=== PATIENT | female | born 1965 | race Caucasian/White ===

== ENCOUNTER 2022-08-15 09:57 | Outpatient (CLI) | payer BC, SELFPAY ==
[2022-08-15 11:36] LABS: Chloride* 101 mmol/L (96-114); Potassium* 4.6 mmol/L (3.6-5.1); Sodium* 141 mmol/L (135-149)
[2022-08-15 11:38] LABS: Cholesterol* 186 mg/dL (90-199); Creatinine* 0.8 mg/dL (0.5-1.5); Estimated Glomerular Filt Rate 85 ml/min
[2022-08-15 11:39] LABS: Blood Urea Nitrogen* 22 mg/dL (7-30); Calcium* 9.6 mg/dL (8.4-10.6); Carbon Dioxide* 33 mmol/L (20-32); Glucose* 97 mg/dL (60-115); Triglycerides* 131 mg/dL (40-149)
[2022-08-15 11:40] LABS: HDL Cholesterol* 62 mg/dL (>=50); LDL Cholesterol Calculated 98 mg/dL (<100)
== END 2022-08-15 09:58 | disposition home or self-care (01) ==
PROVIDERS: PCP Internal Medicine; Visit Provider Internal Medicine
DX: E03.9 Hypothyroidism, unspecified (principal); I10 Essential (primary) hypertension; E78.5 Hyperlipidemia, unspecified
CPT/HCPCS: 80048; 80061; 84443

== ENCOUNTER 2022-11-03 09:05 | Outpatient (CLI) | payer BC, SELFPAY ==
--- NOTE | 2022-11-03 09:15 | CRLHL7_ITS ---
For Patients: As a result of the Century Cures Act, medical imaging exams and procedure reports are released immediately into your electronic medical record. You may view this report before your referring provider. If you have questions, please contact your health care provider. BILATERAL SCREENING MAMMOGRAM WITH COMPUTER-AIDED DETECTION AND TOMOSYNTHESIS TECHNIQUE: CC and MLO views were obtained. These mammographic images have been obtained using full-field digital technique. These mammographic images were interpreted with the benefit of computer-aided detection. Breast Tomosynthesis was used in this interpretation. COMPARISON FILM: 07/18/21, 10/26/19, 09/24/18. FINDINGS: There are scattered areas of fibroglandular density IMPRESSION: There is no radiographic evidence for malignancy. ASSESSMENT: BI-RADS Category 1: Negative RECOMMENDATION: Routine screening mammogram in 1 year. A lay language report of this examination will be provided to the patient. Juan Taylor M.D. Diagnostic Radiologist [email or web address] BRENT/Dictated by: Juan Taylor MD @ 11/03/2022 12:28:00 PM (Electronically Signed)
== END 2022-11-03 09:06 | disposition home or self-care (01) ==
LOC: MAMMO 09:07
PROVIDERS: PCP Internal Medicine; Visit Provider Internal Medicine
DX: Z12.31 Encounter for screening mammogram for malignant neoplasm of breast (principal)
CPT/HCPCS: 77063; 77067

== ENCOUNTER 2023-08-18 07:25 | Outpatient (CLI) | payer BC, SELFPAY | END 2023-08-18 07:26 | disposition home or self-care (01) | LOC: NFLDREF 08-19 12:51 | PROVIDERS: PCP Internal Medicine; Referring Provider Internal Medicine; Visit Provider Internal Medicine | DX: E78.5 Hyperlipidemia, unspecified (principal); I10 Essential (primary) hypertension; R73.03 Prediabetes; E03.9 Hypothyroidism, unspecified | CPT/HCPCS: 80048; 80061; 84439; 84443 ==

== ENCOUNTER 2023-11-19 08:38 | Outpatient (CLI) | payer BC, SELFPAY ==
--- NOTE | 2023-11-19 09:15 | MM_ITS ---
Patient: SAFIA VALLECILLO Facility:?[facility] Patient ID:?[id number] Site Patient ID:?[id number]. Site :?[id number] Study:?XRay-Breast Bilateral 3D W/CAD-11/19/2023 11:35:38 AM Ordering Physician:Andree Ortiz Final Report: BILATERAL SCREENING MAMMOGRAM WITH COMPUTER-AIDED DETECTION AND TOMOSYNTHESIS TECHNIQUE: CC and MLO views were obtained. These mammographic images have been obtained using full-field digital technique. These mammographic images were interpreted with the benefit of computer-aided detection. Breast Tomosynthesis was used in this interpretation. COMPARISON FILM: 11/03/22, 07/18/21, 10/26/19. FINDINGS: There are scattered areas of fibroglandular density. IMPRESSION: There is no radiographic evidence for malignancy. ASSESSMENT: BI-RADS Category 1: Negative RECOMMENDATION: Routine screening mammogram in 1 year. A lay language report of this examination will be provided to the patient. Juan Taylor M.D. Diagnostic Radiologist [email or web address] DSM/sp R& Transcribed: 7:21 p.m. SP/Dictated by: Juan Taylor MD @ 11/19/2023 12:24:00 PM Signed by:?Juan Taylor MD @11/20/2023 5:39:20 AM (Electronic Signature)
== END 2023-11-19 08:39 | disposition home or self-care (01) ==
LOC: MAMMO 08:38
PROVIDERS: PCP Internal Medicine; Visit Provider Internal Medicine
DX: Z12.31 Encounter for screening mammogram for malignant neoplasm of breast (principal); E03.9 Hypothyroidism, unspecified
CPT/HCPCS: 77063; 77067; 84443

== ENCOUNTER 2024-04-13 13:06 | Outpatient (CLI) | payer BC, SELFPAY ==
--- OUTSIDE RECORDS SUMMARY | 2024-04-14 03:11 | XMS_ITS | Clinical Summary ---
Author Organization [employer] [facility] Address [place], [place] [address] Care Team Providers Care Brake Drum Lathe Operator Name Role Phone [facility] Primary Care Provider Unavail able Allergies Active Allergy Reactions Criticality Noted Date Comments Penicillins 12/12/2006 Sulfa (Sulfonamide Antibiotics) 11/14 Medications Medication Sig Dispensed Refills Start Date End Date Status VITAMIN D-3 2,000 UNIT TAB 0 07/11/2009 Active fluticasone (50 mcg per actuation) nasal solution (FLONASE)Indications:U nspecified asthma(493.90) Inhale 1 [place] in the nostril(s) 2 times daily. Do not fill until patient calls 1 Bottle 12 12/16/2013 Active albuterol HFA (PRO-AIR,VENTOLIN,PROV ENTIL) 90 mcg/actuation inhalerIndications:Uns pecified asthma(493.90) Inhale 2 Puffs by mouth 4 times daily if needed. 1 Inhaler 11 11/14/2015 Active estradiol (ESTRACE) 0.1 mg/g vaginal creamIndications:Vagin al atrophy Insert 2 g into the vagina once weekly. 1 Tube 6 06/04/2016 Active loratadine (CLARITIN) 10 mg tablet Take 1 tablet by mouth once daily. 0 12/24/2016 Active vitamin B complex (B-COMPLEX VITAMIN) tablet Take 1 tablet by mouth once daily. 0 01/05/2017 Active hydroCHLOROthiazide (HCTZ) 25 mg tabletIndications:Esse ntial hypertension Take 1 tablet by mouth once daily. Do not fill until patient calls 90 tablet 3 01/05/2017 Active levothyroxine (SYNTHROID) 112 mcg tabletIndications:Hypo thyroidism, unspecified Take 1 tablet by mouth before breakfast. 90 tablet 3 01/05/2017 Active montelukast (SINGULAIR) 10 mg tabletIndications:Seas onal allergic rhinitis, unspecified allergic rhinitis trigger Take 1 tablet by mouth once daily. Do not fill until patient calls 90 tablet 3 01/05/2017 Active Active Problems Problem Noted Date Diagnosed Date Localized superficial swelling, mass, or lump Overview: Likely foreign body reaction in left 4th finger. Chondromalacia, patella 07/30/2009 Carpal tunnel syndrome 10/17/2008 Unspecified hypothyroidism 12/12/2006 Unspecified essential hypertension 12/12/2006 Other and unspecified hyperlipidemia 12/12/2006 Unspecified asthma(493.90) 12/12/2006 Immunizations Name Administration Dates Next Due AMB Influenza, IIV3 (Age >=3 years)(Flu Clinic Only) 07/31/2008 Influenza, IIV3 (Age >=3 years) 07/15/20 13,07/15/2011,07/15/2010, 7,08/20/2006 Td (Age >=7 Years) 08/26/2005 Tdap 10/25/2010 Family History Medical History Relation Name Comments Other Brother non Hodgkins ly mphoma Diabetes Child son Stroke Father Diabetes Maternal Grandmother Stroke Mother Other cancer Paternal Grandfather lip can cer Diabetes Paternal Grandmother Cancer-breast No Family History Cancer-colon No Family History Relation Name Status Comments Brother (Age 57) non hodgki ns lymphoma Child Father Maternal Grandmother Mother (Age 96) Paternal Grandfather Paternal Grandmother Social History Tobacco Use Types Packs/Day Years Used Date Smoking Tobacco: Former Tobacco Cessation:Counseling Given: Yes Alcohol Use Standard Drinks/Week Comments Yes 0 (1 standard drink = 0.6 oz pur e alcohol) occasional Sex and Gender Information Value Date Recorded Sex Assigned at Not on file Gender Identity Not on file Sexual Orientation Not on file Obstetrics History Para Term AB IAB SAB Ectopic Multiple Livin g Live Births 2 2 2 Date Outcome GA Total Labor Labor/2nd/3rd Weight Sex Type Anes PTL [place] A1 A5 Name Clin Para Para Last Filed Vital Signs Vital Sign Reading Time Taken Comments Blood Pressure 104/71 01/28/2017 7:58 AM CDT Pulse 87 01/28/2017 7:58 AM CDT Temperature 36.9 ??C (98.5 ??F) 01/28/2017 7:58 AM CD T Respiratory Rate - - Oxygen Saturation 99% 01/28/2017 7:58 AM CDT Inhaled Oxygen Concentration - - Weight 105.1 kg (231 lb 9.6 oz) 01/28/2017 7:58 AM CDT Height 179 cm (5' 10.47) 01/28/2017 7:58 AM CDT Body Mass Index 32.79 01/28/2017 7:58 AM CDT Plan of Treatment Health Maintenance Due Date Last Done Comments HIV for age 15-65 1978 Hepatitis C screening for age 18-79 1981 Colonoscopy through age 75 2008 Zoster (shingles) series for age 50+ (1 of 2) 2013 Depression screening for age 12+ 05/21/2017 05/21/2016, 05/21/2016 Mammogram for age 45-75 10/16/2017 10/16/19 17, 12/12/2013, 11/22/2012, Additional history exists BMI (ht and wt on same day) for age 18+ 01/28/2018 01/28/2017, 12/24/2016, 08/20/2016, Additional history exists Tetanus booster 10/25/2020 10/25/2010, 08/26/2005 Lipids for age 45-75 05/14/2021 05/14/2016, 12/14/2014, 12/09/2013, Additional history exists Pap test for age 21-65 05/21/2021 6, 05/21/2016, 11/23/2012, Additional history exists COVID-19 vaccine series (2022-24 season) 2023 Influenza for age 50-64 05/15/2024 06/22/20 15 ([facility]), 07/15/2013, 07/15/2011, Additional history exists Tdap Completed 10/25/2010 Pneumococcal series for age 6-64 Aged Out No longer eligible based on patient's age to complete this topic Procedures Procedure Name Priority Date/Time Associated Diagnosis Comments XR MAMMO BILAT DIAGNOSTIC Routine 10/16/2016 1:43 PM PRIMARY MONTESSORI TEACHER Breast abscess CHECK CASHIER THIN PREP PAP SCREEN IMAGED Routine 05/21/2016 8:15 AM CDT Healthcare maintenance LIPID PANEL W REFLEX MEASURED LDL Routine 05/14/2016 7:54 AM CDT Health care maintenance from Last 3 Months or Most Recently Relevant to Health Maintenance Results * XR MAMMO BILAT DIAGNOSTIC (10/16/2016 1:43 PM PRIMARY MONTESSORI TEACHER) Anatomical Region Laterality Modality BREASTS, Breast Left, Breast Right Bilateral Mammography Impressions 10/16/2016 3:48 PM PRIMARY MONTESSORI TEACHER ??Benign. ??Any further workup is as clinically indicated, otherwise, I would recommend continued screening in one year. ?? BI-RADS Category 2: Benign Davy Cummings M.D. Diagnostic Radi[facility] [employer] [email or web address] ADELAIDAO/pjtrav / ?? Narrative 10/16/2016 3:48 PM PRIMARY MONTESSORI TEACHER BILATERAL DIGITAL DIAGNOSTIC MAMMOGRAM 10/16/2016 ?? RIGHT BREAST ULTRASOUND 10/16/2016 CLINICAL HISTORY: ??Follow-up abscess. ??The patient had dark bloody discharge from the RIGHT nipple. ??The palpable area at the 6 o'clock position has resolved. TECHNIQUE: ??BILATERAL full-field digital mammograms were performed. ?? FINDINGS: ??A marker was placed at the 6 o'clock position at the site of the prior abscess/infection. ??The breast parenchyma is predominantly fatty. ??No spiculated masses or suspicious clustered pleomorphic microcalcifications are identified but targeted ultrasound will be performed of the retroareolar and 6 o'clock positions of the RIGHT breast. The LEFT breast is unchanged from prior examinations. RIGHT BREAST ULTRASOUND: ??Targeted ultrasound was performed of the retroareolar region and at the 6 o'clock position at the site of the prior infection. ??There are some prominent/mildly dilated ducts in the retroareolar region but no mass is identified. ??At the 6 o'clock position 1 cm from the nipple, there is a vague residual hyperechoic area with a hypoechoic center. ??This is decreased in size and probably is the residua of the prior infection. ??It previously measured 11 x 9 x 9 mm and now measures just 8 x 4 x 3 mm. ?? Ranjeet Jennings MD MAMMO * CHECK CASHIER THIN PREP PAP SCREEN IMAGED (05/21/2016 8:15 AM CDT) CHECK CASHIER CYTOLOGY See Anatomic Pathology case 05/22/2016 9:01 AM CDT [facility] Other (Cervical) Non-Blood / Unknown 05/21/2016 8:15 AM CDT 05/21/2016 8:40 AM CDT Janik Dioxn MD PATHOLOGY/CYTOLOGY [facility] [address] [place] [address], [place] * (ABNORMAL) LIPID PANEL W REFLEX MEASURED LDL (05/14/2016 7:54 AM CDT) CHOLESTEROL,TOTAL 248(H) 100 - 199 mg/dL 05/14/2016 8:26 AM CDT [facility] TRIGLYCERIDES 212(H) <150 mg/dL 05/14/2016 8:26 AM CDT [facility] HDL CHOLESTEROL 53 >40 mg/dL 05/14/2016 8:26 AM CDT [facility] NON-HDL CHOLESTEROL 195(H) <145 mg/dl 05/14/2016 8:26 AM CDT [facility] CHOL/HDL RATIO 4.68(H) <4.50 05/14/2016 8:26 AM CDT [facility] LDL CHOLESTEROL 153(H) <=130 mg/dL 05/14/2016 8:26 AM CDT [facility] PATIENT STATUS FASTING 05/14/2016 8:26 AM CDT [facility] Blood BLOOD SPECIMEN / Unknown Venipuncture / Unknown 05/14/2016 7:54 AM CDT 05/14/2016 7:54 AM CDT Janki Dixon MD CHEMISTRY [facility] [address] [place] [address], from Last 3 Months or Most Recently Relevant to Health Maintenance Care Teams Brake Drum Lathe Operator Relationship Specialty Start Date End Date Boby Ford PCP - General 08/17/17
--- OUTSIDE RECORDS SUMMARY | 2024-04-14 03:11 | XMS_ITS | Clinical Summary ---
Author Organization [facility] Address [address] [place] [address] Care Team Providers Care Insulation Professional Name Role Phone Unavailable Primary Care Provider Unavailabl e Source Comments Patient records contain information from all sites at [facility]. For routine questions regarding patient records, call [phone] during business hours, M-F 8:00 AM - 5:00 PM Central Time. Record requests for emergency care only can be directed to [phone] at any time.[facility] Allergies Active Allergy Reactions Criticality Noted Date Comments Ibuprofen Hives (Reselect Reaction) High 02/15/2020 Penicillins Hives (Reselect Reaction) 0 Sulfa (Sulfonamide Antibiotics) Hives (Reselect Reaction) 12/12/2006 Medications Medication Sig Dispensed Refills Start Date End Date Status albuterol inhaler Inhale 2 puffs as needed (1-2 TIME PER YEAR). 11/14/2015 Active cholecalciferol (VITAMIN D3) 2,000 Unit tablet Take 125 mcg by mouth daily. 5000 IU'S DAILY 07/11/2009 Active simvastatin (ZOCOR) 10 mg tablet Take 10 mg by mouth at bedtime. 01/27/2020 Active hydroCHLOROthiazide (HYDRODIURIL) 25 mg tablet Take 25 mg by mouth daily. 01/27/2020 Active fluticasone propionate (FLONASE) 50 mcg/actuation nasal spray 2 sprays as needed (DURING ALLERGY FLAIRUP'S ONLY). Active levothyroxine (SYNTHROID, LEVOTHROID) 100 mcg tablet Take 100 mcg by mouth every morning before breakfast. 05/29/2021 Active montelukast (SINGULAIR) 10 mg tablet Take 10 mg by mouth at bedtime. Active cyanocobalamin (vitamin B-12) 1,000 mcg tablet Take 1,000 mcg by mouth daily. I per day Active cetirizine 10 mg capsule Take 10 mg by mouth daily. Active clobetasoL (TEMOVATE) 0.05 % gel Oral lichen planus: BID to any symptomatic areas 60 g 3 04/21/2023 Active clobetasoL (TEMOVATE) 0.05 % ointment BID x 2 wks then QHS x 2 wks then Vulva M+W+F nights ongoing prn increase to bid for flares. 60 g 3 04/21/2023 Active estradioL (ESTRACE) 0.1 mg/g (0.01%) vaginal cream Insert 1 g into the vagina 2 (two) times a week. 42.5 g 3 04/23/2023 Active Active Problems No known active problems Social History Tobacco Use Types Packs/Day Years Used Date Smoking Tobacco: Never Smokeless Tobacco: Never Tobacco Cessation:Counseling Given: Not Answered Humiliation, Afraid, Rape, and Kick questionnair e Answer Date Recorded Within the last year, have y ou been afraid of your partner or ex-partner? No 04/14/2023 Within the last year, have y ou been humiliated or emotionally abused in other ways by your partner or ex-partner? No Within the last year, have y ou been kicked, hit, slapped, or otherwise physically hurt by your partner or ex-partner? No 04/14/2023 Within the last year, have y ou been raped or forced to have any kind of sexual activity by your partner or ex-partner? No 04/14/2023 Overall Financial Resource Strain (CARDIA) Answe r Date Recorded How hard is it for you to pa y for the very basics like food, housing, medical care, and heating? Not hard at all 04/14/2023 Exercise Vital Sign Answer Date Recorde d On average, how many days pe r week do you engage in moderate to strenuous exercise (like a brisk walk)? 0 days 04/14/2023 On average, how many minutes do you engage in exercise at this level? 0 min 04/14/2023 Hunger Vital Sign Answer Date Recorded Within the past 12 months, y ou worried that your food would run out before you got the money to buy more. Never true 04/14/20 23 Within the past 12 months, t he food you bought just didn't last and you didn't have money to get more. Never true 04/14/2023 PRAPARE - Transportation Answer Date Re corded In the past 12 months, has l ack of transportation kept you from medical appointments or from getting medications? No 09/2022 In the past 12 months, has l ack of transportation kept you from meetings, work, or from getting things needed for daily living? No 04/14/2023 Nutrition Answer Date Recorded Nutrition: EVOO Fat Source Unknown 04/14 On average, how many serving s of fruits and vegetables do you eat per day (serving size is equal to 1 cup or approximately the size of a tennis ball)? 0-2 04/14/2023 Dental Answer Date Recorded Dental: Regular Dentist Yes 04/14/20 Employment Answer Date Recorded Employment status Retired 04/14/2023 Housing Stability Answer Date Recorded What is your living situation today? I have a [facility] place to live 04/14/2023 Sex and Gender Information Value Date Recorded Sex Assigned at Female 07/22/2023 7:33 PM RN MEDICAL SURGICAL Gender Identity Female 07/22/2023 7:33 PM RN MEDICAL SURGICAL Sexual Orientation Straight 07/22/2023 7: 33 PM RN MEDICAL SURGICAL Last Filed Vital Signs Vital Sign Reading Time Taken Comments Blood Pressure 136/86 02/15/2020 8:30 AM CDT Pulse 84 02/15/2020 8:30 AM CDT Temperature - - Respiratory Rate - - Oxygen Saturation - - Inhaled Oxygen Concentration - - Weight 106 kg (233 lb 4 oz) 02/15/2020 8:30 AM C DT Height 178.4 cm (5' 10.24) 02/15/2020 8:30 AM C DT Body Mass Index 33.24 02/15/2020 8:30 AM CDT Plan of Treatment Health Maintenance Due Date Last Done Comments CT Colonography 1965 Colonoscopy 1965 FIT 1965 Fasting Glucose for Diabetes Screening 1965 HIV Screening 1965 Hepatitis C Screening 1965 Lipid (Cholesterol) Screening 1965 Mammogram 1965 Thyroid Stimulating Hormone (TSH) test for thyroid function 1963 COVID-19 Vaccine ( season) 2023 08/02/2021, 12/18/2020, 11/27/2020 Depression Screening (Annual PHQ-2) 09/14/2023 Influenza Vaccine (#1) 2024 3, 08/18/2022, 06/26/2021, Additional history exists Cologuard 08/16/2024 08/16/2021 Colorectal Cancer Screening 08/16/2024 Cervical Cancer Screening 02/14/2025 02/15/2020, 11/2019 DTaP,Tdap,and Td Vaccines (3 - Td or Tdap) 07/16/2031 07/16/2021, 10/25/2010, 10/25/2010, Additional history exists Zoster Vaccines Completed 09/12/2020, 06/25/2020 Hepatitis B Vaccines Aged Out No long er eligible based on patient's age to complete this topic Pneumococcal vaccine (0-64 years) Aged Out No longer eligible based on patient's age to complete this topic Procedures Procedure Name Priority Date/Time Associated Diagnosis Comments THINPREP W/HPV CO-TEST SCREEN Routine 02/15/2020 9:13 AM CDT Lichen Planus Lichen Sclerosus Vulvar Intraepithelial Neoplasia Grade I from Last 3 Months or Most Recently Relevant to Health Maintenance Results * ThinPrep w/HPV Co-Test Screen (02/15/2020 9:13 AM CDT) 02/29/2020 2:25 PM CDT DTL Report electronically signed by KAT Reddy (ASCP) I verify that I have examined all relevant slides/materials for the specimen(s) and rendered or confirmed the diagnosis. 02/29/2020 2:25 PM CDT DTL Gross Description Received specimen in a ThinPrep vial. 02/29/2020 2:25 PM CDT DTL Pap Test Source Cervical/Endocervi rosanne 02/29/2020 2:25 PM CDT DTL Clinical History \[id number]\ 02/29/20 20 2:25 PM CDT DTL Menstrual Status(LMP, PM, ) PM 02/29/2020 2:25 PM CDT DTL Hormone Therapy/Contracep tives None/Not known 02/29/2020 2:25 PM CDT DTL Interpretation Cervical/Endocervi rosanne ??(ThinPrep): Satisfactory for Evaluation Negative for Intraepithelial Lesion or Malignancy ??High Risk HPV testing results are NEGATIVE. See specific genotype results below. HPV with Genotyping, PCR, ThinPrep: ??HPV High Risk Type 16, PCR: ??NEGATIVE ??HPV High Risk Type 18, PCR: ??NEGATIVE ??HPV other High Risk types, PCR: ??NEGATIVE Other High Risk HPV types include: 31, 33, 35, 39, 45, 51, 52, 56, 58, 59, 66, and 68. 02/29/2020 2:25 PM CDT DTL Varies (Cervix/Endocerv ix) 02/15/2020 9:13 AM CDT 02/15/2020 5:13 PM CDT Radha Geller M.D. LAB PAP PATHDX ORDER [facility]IA DEL [facility] [address] [place] [address], [facility] [address] [place] [address] from Last 3 Months or Most Recently Relevant to Health Maintenance
--- OUTSIDE RECORDS SUMMARY | 2024-04-14 03:11 | XMS_ITS ---
Author Organization [facility] Address [address] [place] [address] Care Team Providers Care Baby Stroller Rental Clerk Name Role Phone Unavailable Unavailable Unavailable Surgery Details Not on file Complications Check Surgery Details section. Procedure Estimated Blood Loss Check Surgery Details section. Procedure Findings Check Surgery Details section. Procedure Specimens Taken Check Surgery Details section.
--- OUTSIDE RECORDS SUMMARY | 2024-04-14 03:11 | XMS_ITS | Referral Summary ---
Author Organization [facility] Address [address] [place] [address] Care Team Providers Care Pastry Cook Name Role Phone Unavailable Primary Care Provider Unavailabl e Source Comments Patient records contain information from all sites at [facility]. For routine questions regarding patient records, call [phone] during business hours, M-F 8:00 AM - 5:00 PM Central Time. Record requests for emergency care only can be directed to [phone] at any time.[facility] Allergies Active Allergy Reactions Criticality [...] your living situation today? I have a [facility] place to live 04/14/2023 Sex and Gender Information Value Date Recorded Sex Assigned at Female 07/22/2023 7:33 PM MOLDED GOODS SPOT PICKER Gender Identity Female 07/22/2023 7:33 PM MOLDED GOODS SP[employer] PICKER Sexual Orientation Straight 07/22/2023 7: 33 PM MOLDED GOODS SPOT PICKER Last Filed Vital Signs Vital Sign Reading [...] 02/15/2020 8:30 AM CDT Plan of Treatment Not on file Procedures Procedure Name Priority Date/Time Associated Diagnosis [...] 02/29/2020 2:25 PM CDT DTL Clinical History \[id number]\ 02/29/20 2:25 PM CDT DTL Menstrual Status(LMP, PM, [...] LAB PAP PATHDX ORDER [facility] [address] [place] [address], [place] DTL [facility] [address] [place] [address] from Last 3 Months or Most Recently Relevant to Health Maintenance
== END 2024-04-13 13:07 | disposition home or self-care (01) ==
LOC: NFLDREF 04-14 03:10
PROVIDERS: PCP Internal Medicine; Referring Provider Internal Medicine; Visit Provider Nurse Practitioner Family
DX: R39.9 Unspecified symptoms and signs involving the genitourinary system (principal); N39.0 Urinary tract infection, site not specified; A49.9 Bacterial infection, unspecified
CPT/HCPCS: 87086; 87186

== ENCOUNTER 2024-08-19 07:45 | Outpatient (CLI) | payer BC, SELFPAY ==
--- OUTSIDE RECORDS SUMMARY | 2024-08-23 17:55 | XMS_ITS | Referral Summary ---
Author Organization [facility] Address [address] [place] [address] Care Team Providers Care Credit Administrator Name Role Phone Unavailable Primary Care Provider Unavailabl e Source Comments Patient records contain information from all sites at [facility]. For routine questions regarding patient records, call [phone] during business hours, M-F 8:00 AM - 5:00 PM Central Time. Record requests for emergency care only can be directed to [phone] at any time.[facility] Encounters Date Type Department Care Team Description 07/21/2024 Refill Department of Obstetrics and Gynecology in [place], [place] [address] [place] [address] Pamela Warren M.D., Ph.D. Med Refill from Last 3 Months Allergies Active Allergy Reactions Criticality Noted Date Comments Ibuprofen Hives (Reselect Reaction) High 02/15/2020 Penicillins Hives (Reselect Reaction) 0 Sulfa (Sulfonamide Antibiotics) Hives (Reselect Reaction) 12/12/2006 Medications albuterol inhaler Inhale 2 puffs as needed (1-2 TIME PER YEAR). 6 Active cholecalciferol (VITAMIN D3) 2,000 Unit tablet Take 125 mcg by mouth daily. 5000 IU'S DAILY 9 Active simvastatin (ZOCOR) 10 mg tablet Take 10 mg by mouth at bedtime. 0 Active hydroCHLOROthia zide (HYDRODIURIL) 25 mg tablet Take 25 mg by mouth daily. 0 Active fluticasone propionate (FLONASE) 50 mcg/actuation nasal spray 2 sprays as needed (DURING ALLERGY FLAIRUP'S ONLY). Active levothyroxine (SYNTHROID, LEVOTHROID) 100 mcg tablet Take 100 mcg by mouth every morning before breakfast. 1 Active montelukast (SINGULAIR) 10 mg tablet Take 10 mg by mouth at bedtime. Active cyanocobalamin (vitamin B-12) 1,000 mcg tablet Take 1,000 mcg by mouth daily. I per day Active cetirizine 10 mg capsule Take 10 mg by mouth daily. Active clobetasoL (Temovate) 0.05 % gel Oral lichen planus: BID to any symptomatic areas 60 g 3 4 Active clobetasoL (Temovate) 0.05 % ointment BID x 2 wks then QHS x 2 wks then Vulva M+W+F nights ongoing prn increase to bid for flares. 60 g 3 4 Active estradioL (Estrace) 0.1 mg/g (0.01%) vaginal cream Insert 1 g into the vagina 2 (two) times a week. 42.5 g 3 4 Active Active Problems No known active problems [...] money to buy more. Never true 04/14/20 Within the past 12 months, t he [...] living? No 04/14/2023 Nutrition Answer Date Recorded On average, how many serving s of fruits and vegetables do you eat per day (serving size is equal to 1 cup or approximately the size of a tennis ball)? 0-2 04/14/2023 Dental Answer Date Recorded Dental: Regular Dentist Yes 04/14/20 Employment Answer Date Recorded Employment status Retired 04/14/2023 Housing Stability Answer Date Recorded What is your living situation today? 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 Legal Sex Female 3:35 PM AIRCRAFT MAINTENANCE ENGINEER Gender Identity Female 07/22/2023 7:33 PM AIRCRAFT MAINTENANCE ENGINEER Sexual Orientation Straight 07/22/2023 7: 33 PM AIRCRAFT MAINTENANCE ENGINEER Last Filed Vital Signs Vital Sign Reading [...] 02/29/2020 2:25 PM CDT DTL Clinical History \[id number]\ 02/29/20 20 2:25 PM CDT DTL Menstrual Status(LMP, PM, ) PM 02/29/2020 2:25 PM CDT DTL Hormone Therapy/Contracep tives None/Not known 02/29/2020 2:25 PM CDT DTL Interpretation Cervical/Endocervi rosanne (ThinPrep): Satisfactory for Evaluation Negative for Intraepithelial Lesion or Malignancy High Risk HPV testing results are NEGATIVE. See specific genotype results below. HPV with Genotyping, PCR, ThinPrep: HPV High Risk Type 16, PCR: NEGATIVE HPV High Risk Type 18, PCR: NEGATIVE HPV other High Risk types, PCR: NEGATIVE Other High Risk HPV types include: 31, 33, 35, 39, 45, 51, 52, 56, 58, 59, 66, and 68. 02/29/2020 2:25 PM CDT DTL Varies (Cervix/Endocerv ix) 02/15/2020 9:13 AM CDT 02/15/2020 5:13 PM CDT Radha L Marnach M.D. LAB PAP PATHDX ORDERABLES Fi nal Result [facility] [address] [place] [address], [place] DTL [facility] [address] [place] [address] from Last 3 Months or Most Recently Relevant to Health Maintenance Insurance [facility]
--- OUTSIDE RECORDS SUMMARY | 2024-08-23 17:55 | XMS_ITS | Clinical Summary ---
Author Organization [facility] Address [address] [place] [address] Care Team Providers Care Brick Molder Hand Name Role Phone Unavailable Primary Care Provider Unavailabl e Source Comments Patient records contain information from all sites at [facility]. For routine questions regarding patient records, call [phone] during business hours, M-F 8:00 AM - 5:00 PM Central Time. Record requests for emergency care only can be directed to [phone] at any time.[facility] Allergies Active Allergy Reactions Criticality Noted [...] Active Active Problems No known active problems Encounters Date Type Department Care Team Description 07/21/2024 Refill Department of Obstetrics and Gynecology in [place], [place] [address] [place] [address] Pamela Warren M.D., Ph.D. Med Refill from Last 3 Months Social History Tobacco Use Types Packs/Day Years [...] your living situation today? I have a [facility] place to live 04/14/2023 Comments Unknown Sex and Gender Information Value Date Recorded Sex Assigned at Female 07/22/2023 7:33 PM TOOL/DIE MAKER Legal Sex Female 3:35 PM TOOL/DIE MAKER Gender Identity Female 07/22/2023 7:33 PM TOOL/DIE MAKER Sexual Orientation Straight 07/22/2023 7: 33 PM TOOL/DIE MAKER Last Filed Vital Signs Vital Sign Reading [...] Hormone (TSH) test for thyroid function 1963 Depression Screening (Annual PHQ-2) 09/14/2023 COVID-19 Vaccine ( season) 2024 08/02/2021, 12/18/2020, 11/27/2020 Influenza Vaccine (#1) 2024 , 08/18/2022, 06/26/2021, Additional history exists Cologuard 08/16/2024 08/16/2021 Colorectal Cancer Screening 08/16/2024 Cervical/Vaginal Cancer Screening 02/14/2025 02/15/2020, 02/15/2020 DTaP,Tdap,and Td Vaccines (3 - Td or Tdap) 07/16/2031 07/16/2021, 10/25/2010, 10/25/2010, Additional history exists Zoster Vaccines Completed 09/12/2020, 06/25/2020 IPV Vaccines Aged Out No longer eligi ble based on patient's age to complete this [...] 02/29/2020 2:25 PM CDT DTL Clinical History \[id number]\ 02/29/20 20 2:25 PM CDT DTL Menstrual [...] CDT Radha Geller M.D. LAB PAP PATHDX ORDERABLES Fi nal Result [facility] [address] [place] [address], [facility] [address] [place] [address] from Last 3 Months or Most Recently Relevant to Health Maintenance Insurance [facility]
--- OUTSIDE RECORDS SUMMARY | 2024-08-23 17:55 | XMS_ITS | Clinical Summary ---
Author Organization [facility] Address [place], [place] [address] Care Team Providers Care Lacer And Tier Name Role Phone Clinic, [facility] Primary Care Pr ovider Allergies Active Allergy Reactions Criticality Noted Date Comments Penicillins 12/12/2006 Sulfa (Sulfonamide Antibiotics) 11/14 Medications VITAMIN D-3 2,000 UNIT TAB 0 9 Active fluticasone (50 mcg per actuation) nasal solution (FLONASE)Indicati ons:Unspecified asthma(493.90) Inhale 1 [place] in the nostril(s) 2 times daily. Do not fill until patient calls 1 Bottle 12 4 Active albuterol HFA (PRO-AIR,VENTOLIN ,PROVENTIL) 90 mcg/actuation inhalerIndication s:Unspecified asthma(493.90) Inhale 2 Puffs by mouth 4 times daily if needed. 1 Inhaler 11 6 Active estradiol (ESTRACE) 0.1 mg/g vaginal creamIndications: Vaginal atrophy Insert 2 g into the vagina once weekly. 1 Tube 6 6 Active loratadine (CLARITIN) 10 mg tablet Take 1 tablet by mouth once daily. 0 7 Active vitamin B complex (B-COMPLEX VITAMIN) tablet Take 1 tablet by mouth once daily. 0 7 Active hydroCHLOROthiazi de (HCTZ) 25 mg tabletIndications :Essential hypertension Take 1 tablet by mouth once daily. Do not fill until patient calls 90 tablet 3 7 Active levothyroxine (SYNTHROID) 112 mcg tabletIndications :Hypothyroidism, unspecified Take 1 tablet by mouth before breakfast. 90 tablet 3 7 Active montelukast (SINGULAIR) 10 mg tabletIndications :Seasonal allergic rhinitis, unspecified allergic rhinitis trigger Take 1 tablet by mouth once daily. 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 Not on file Not on file Not on file Obstetrics History Para Term AB IAB SAB Ectopic Multiple Livin g Live Births 2 2 2 Date Outcome GA Total Labor Labor/2nd/3rd Weight Sex Type Anes PTL Lakeshia A1 A5 Name Clin Para Para Last Filed Vital Signs Vital Sign Reading Time Taken Comments Blood Pressure 104/71 01/28/2017 7:58 AM CDT Pulse 87 01/28/2017 7:58 AM CDT Temperature 36.9 C (98.5 F) 01/28/2017 7:58 AM CDT Respiratory Rate - - Oxygen Saturation 99% [...] 11/23/2012, Additional history exists COVID-19 vaccine series (2023- season) 2024 Influenza for age 50-64 05/15/2024 06/22/20 15 (Completed outside of [facility]), 07/15/2013, 07/15/2011, Additional history exists RSV vaccine for adults or (1 - 1-dose 75+ series) 2038 Tdap Completed 10/25/2010 Pneumococcal series for age 6-64 Aged Out No longer eligible based on patient's age to complete this topic Procedures Procedure Name Priority Date/Time Associated Diagnosis Comments XR MAMMO BILAT DIAGNOSTIC Routine 10/16/2016 1:43 PM STABLE MANAGER Breast abscess DISTRICT HOME ECONOMICS AGENT THIN PREP PAP SCREEN IMAGED Routine 05/21/2016 8:15 AM CDT Healthcare maintenance LIPID PANEL W REFLEX MEASURED LDL Routine 05/14/2016 7:54 AM CDT Health care maintenance from Last 3 Months or Most Recently Relevant to Health Maintenance Results * XR MAMMO BILAT DIAGNOSTIC (10/16/2016 1:43 PM STABLE MANAGER) Anatomical Region Laterality Modality BREASTS, Breast Left, Breast Right Bilateral Mammography Impressions 10/16/2016 3:48 PM STABLE MANAGER Benign. Any further workup is as clinically indicated, otherwise, I would recommend continued screening in one year. BI-RADS Category 2: Benign Davy Cummings M.D. Diagnostic Radiologist [email or web address] ADELAIDAO/pjt / Narrative 10/16/2016 3:48 PM STABLE MANAGER BILATERAL DIGITAL DIAGNOSTIC MAMMOGRAM 10/16/2016 RIGHT BREAST ULTRASOUND 10/16/2016 CLINICAL HISTORY: Follow-up abscess. The patient had dark bloody discharge from the RIGHT nipple. The palpable area at the 6 o'clock position has resolved. TECHNIQUE: BILATERAL full-field digital mammograms were performed. FINDINGS: A marker was placed at the 6 o'clock position at the site of the prior abscess/infection. The breast parenchyma is predominantly fatty. No spiculated masses or suspicious clustered pleomorphic microcalcifications are identified but targeted ultrasound will be performed of the retroareolar and 6 o'clock positions of the RIGHT breast. The LEFT breast is unchanged from prior examinations. RIGHT BREAST ULTRASOUND: Targeted ultrasound was performed of the retroareolar region and at the 6 o'clock position at the site of the prior infection. There are some prominent/mildly dilated ducts in the retroareolar region but no mass is identified. At the 6 o'clock position 1 cm from the nipple, there is a vague residual hyperechoic area with a hypoechoic center. This is decreased in size and probably is the residua of the prior infection. It previously measured 11 x 9 x 9 mm and now measures just 8 x 4 x 3 mm. us Ranjeet Jennings MD MAMMO Final Resu lt * DISTRICT HOME ECONOMICS AGENT THIN PREP PAP SCREEN IMAGED (05/21/2016 8:15 AM CDT) DISTRICT HOME ECONOMICS AGENT CYTOLOGY See Anatomic Pathology case 05/22/2016 9:01 AM CDT [facility] Other (Cervical) Non-Blood / Unknown 05/21/2016 8:15 AM CDT 05/21/2016 8:40 AM CDT us Janki Dixon MD PATHOLOGY/CYTOLOGY Final R esult [facility] [address] [place] [address], [place] * (ABNORMAL) LIPID PANEL W REFLEX MEASURED LDL (05/14/2016 7:54 AM CDT) CHOLESTEROL,TOTAL 248(H) 100 - 199 mg/dL 05/14/2016 8:26 AM CDT [facility] TRIGLYCERIDES 212(H) <150 mg/dL 05/14/2016 8:26 AM CDT [facility] HDL CHOLESTEROL 53 >40 mg/dL 05/14/2016 8:26 AM CDT [facility] NON-HDL CHOLESTEROL 195(H) <145 mg/dl 05/14/2016 8:26 AM CDT [facility] CHOL/HDL RATIO 4.68(H) <4.50 05/14/2016 8:26 AM CDT [facility] LDL CHOLESTEROL 153(H) <=130 mg/dL 05/14/2016 8:26 AM CDT [facility] PATIENT STATUS FASTING 05/14/2016 8:26 AM CDT [facility] Blood BLOOD SPECIMEN / Unknown Venipuncture / Unknown 05/14/2016 7:54 AM CDT 05/14/2016 7:54 AM CDT Janki Dixon MD CHEMISTRY Final Resu lt [facility] [address] [place] [address], from Last 3 Months or Most Recently Relevant to Health Maintenance Insurance [facility] Care Teams Lacer And Tier Relationship Specialty Start Date End Date [facility] [address] [place] [address] PCP - General 04/25/24
--- OUTSIDE RECORDS SUMMARY | 2024-08-23 17:55 | XMS_ITS | Encounter Summary ---
Author Organization [facility] Address [address] [place] [address] Care Team Providers Care Pack Changer Name Role Phone Unavailable Primary Care Provider Unavailabl e Reason for Visit * Reason Onset Date Comments Med Refill 07/21/2024 Encounter Details Date Type Department Care Team (Late st Contact Info) Description 07/21/2024 Refill Department of Obstetrics and Gynecology in [place], [place] [address] [place] [phone] Pamela Warren M.D., Ph.D. [address] [place] [phone] Med Refill Social History Tobacco Use Types Packs/Day Years Used Date Smoking Tobacco: Never Smokeless Tobacco: Never Humiliation, Afraid, Rape, and Kick questionnair e [...] No 04/14/2023 Overall Financial Resource Strain (CARDIA) Elizabeth r Date Recorded How hard is it [...] living situation today? I have a [facility] place to live 04/14/2023 Comments Unknown Sex and Gender Information Value Date Recorded Sex Assigned at Female 07/22/2023 7:33 PM LASER PRINT OPERATOR Legal Sex Female 3:35 PM LASER PRINT OPERATOR Gender Identity Female 07/22/2023 7:33 PM LASER PRINT OPERATOR Sexual Orientation Straight 07/22/2023 7: 33 PM LASER PRINT OPERATOR documented as of this encounter Plan of Treatment Not on file documented as of this encounter Visit Diagnoses Not on filedocumented in this encounter
--- OUTSIDE RECORDS SUMMARY | 2024-08-23 17:55 | XMS_ITS ---
Author Organization [facility] Address [address] [place] [address] Care Team Providers Care Employee Relations Director Name Role Phone Unavailable Unavailable Unavailable Surgery Details Not on file Complications Check Surgery Details section. Procedure Estimated Blood Loss Check Surgery Details section. Procedure Findings Check Surgery Details section. Procedure Specimens Taken Check Surgery Details section.
== END 2024-08-19 07:46 | disposition home or self-care (01) ==
LOC: NFLDREF 08-23 17:53
PROVIDERS: PCP Internal Medicine; Referring Provider Internal Medicine; Visit Provider Internal Medicine
DX: I10 Essential (primary) hypertension (principal); E03.9 Hypothyroidism, unspecified; R73.03 Prediabetes; E78.5 Hyperlipidemia, unspecified
CPT/HCPCS: 80048; 80061; 84443

== ENCOUNTER 2024-11-24 09:01 | Outpatient (CLI) | payer BC, SELFPAY ==
--- NOTE | 2024-11-24 09:15 | CRLHL7_ITS ---
For Patients: As a result of the Century Cures Act, medical imaging exams and procedure reports are released immediately into your electronic medical record. You may view this report before your referring provider. If you have questions, please contact your health care provider. BILATERAL SCREENING MAMMOGRAM WITH COMPUTER-AIDED DETECTION AND TOMOSYNTHESIS TECHNIQUE: CC and MLO views were obtained. These mammographic images have been obtained using full-field digital technique. These mammographic images were interpreted with the benefit of computer-aided detection. Breast Tomosynthesis was used in this interpretation. COMPARISON FILM: 11/19/23, 11/03/22, 07/18/21. FINDINGS: The breasts are almost entirely fatty. IMPRESSION: There is no radiographic evidence for malignancy. ASSESSMENT: BI-RADS Category 1: Negative RECOMMENDATION: Routine screening mammogram in 1 year. A lay language report of this examination will be provided to the patient. Juan Taylor M.D. Diagnostic Radiologist [email or web address] SP/Dictated by: Juan Taylor MD @ 11/24/2024 11:08:00 AM (Electronically Signed)
== END 2024-11-24 09:02 | disposition home or self-care (01) ==
LOC: MAMMO 09:02
PROVIDERS: PCP Internal Medicine; Visit Provider Internal Medicine
DX: Z12.31 Encounter for screening mammogram for malignant neoplasm of breast (principal)
CPT/HCPCS: 77063; 77067

== ENCOUNTER 2025-08-22 07:44 | Outpatient (CLI) | payer BC, SELFPAY | END 2025-08-22 07:45 | disposition home or self-care (01) | LOC: NFLDREF 08-27 20:29 | PROVIDERS: PCP Internal Medicine; Referring Provider Internal Medicine; Visit Provider Internal Medicine | DX: E03.9 Hypothyroidism, unspecified (principal); E78.5 Hyperlipidemia, unspecified | CPT/HCPCS: 80048; 80061; 84443 ==